=== PATIENT | male | born 1985 | race Two or more races ===

== ENCOUNTER 2022-08-22 13:06 | Emergency (ER) | payer OTHER ==
[~2022-08-22] VITALS: Ht 175.3 cm; Wt 121.3 kg
[2022-08-22 15:16] VITALS: BP 118/77
[2022-08-22] MEDS ORDERED: IBUP800T27 PO (15:49)
[2022-08-22] MEDS ORDERED: AZIT500T66 PO (15:49)
== END 2022-08-22 15:58 | disposition home or self-care (01) ==
LOC: ER 13:06
DX: J03.90 Acute tonsillitis, unspecified (principal)